=== PATIENT | male | born 1990 | race Caucasian/White ===

== ENCOUNTER 2023-03-13 09:51 | Emergency (ER) | payer SELFPAY ==
--- NOTE | 2023-03-13 10:01 | W.ED.ABDPA2 ---
HPI - Abdominal Pain General: Chief Complaint: Abdominal Pain Stated Complaint: abd pain Time Seen by Provider: 03/13/23 09:52 Source: patient Mode of arrival: ambulatory Limitations: no limitations History of Present Illness: Patient is a 32-year-old male who presents to ED today with a complaint of left-sided abdominal pain that he states first began approximately 2 weeks ago. He states pain started gradually. He states the day the pain began he had a fever of 102 but this has since subsided and not returned. He states every day he has felt incredibly nauseous and has had approximately one episode daily of what he describes as yellow bilious vomiting in the morning-reports making himself throw up in attempts to feel better. Patient states stools have been diarrhea over the past 2 weeks. Patient was evaluated at [facility] and sent to the emergency department for further evaluation. He denies any urinary frequency, hesitancy, urgency, hematuria. No flank pain. He denies heavy alcohol use or NSAID use. He is a habitual marijuana user but no other drug use. MD elicited complaint: abdominal pain Onset (ago): week(s) Pain Consistency: constant (with intermittent exacerbations) Location: LUQ and LLQ Severity: moderate Quality: sharp Radiation: none Migration to: no migration Exacerbating factors: nothing Relieving factors: eating (feels like eating maybe helps?) Associated Symptoms: Reports change in stool character, chills, diarrhea, fever(s) (day of abdominal pain onset-none since), nausea and vomiting; Denies dysuria, heartburn, hematuria, hematemesis and syncope Treatments prior to arrival: other (given IM Zofran at [facility] w/o improvement in nausea) Review of Systems Const: Reports: fever(s) (day of abdominal pain onset-none since) and chills; Denies: body aches, fatigue or malaise Eyes: Denies: change in vision or blurry vision Card: Denies: chest pain, palpitations, irregular heart rhythm, lightheadedness, syncope or dyspnea on exertion Resp: Denies: dyspnea, productive cough or pain on inspiration GI: Reports: abdominal pain, nausea, vomiting, diarrhea and change in stool character; Denies: hematemesis or heartburn : Denies: flank pain, difficulty urinating, dysuria, urinary frequency, urinary urgency, urinary hesitancy or hematuria Musc: Denies: neck pain, back pain, extremity pain, extremity swelling or joint pain Skin/Breast: Denies: rash Neuro: Denies: headache(s), numbness in extremities, weakness in extremities or sensory changes Physical Exam Const: COMMON NORMALS: average body habitus, patient oriented x3, no limitations, healthy appearing, alert and well nourished GENERAL APPEARANCE: cooperative and in distress (appears uncomfortable) ORIENTATION/CONSCIOUSNESS: Yes awake, Yes oriented to person, Yes oriented to place and Yes oriented to time HENMT: COMMON NORMALS: normocephalic and atraumatic HEAD & SCALP: normal to inspection, normocephalic and atraumatic Eye: COMMON NORMALS: no scleral icterus Resp: COMMON NORMALS: normal respiratory effort and clear to auscultation bilaterally AUSCULTATION: clear to auscultation bilaterally Cardio: COMMON NORMALS: regular rate and regular rhythm RATE: regular rate RHYTHM: regular rhythm GI: COMMON NORMALS: Normal to inspection, nondistended, normoactive bowel sounds present, Soft to palpation, No hepatosplenomegaly present and no masses INSPECTION: Yes normal to inspection AUSCULTATION: Yes Hypoactive bowel sounds present PALPATION: Yes Soft to palpation, Yes Tenderness to palpation present (GI) (throughout L abdomen although he states pain is not bad currently), No Guarding due to palpation present (GI), No Rigid due to palpation and Yes No hepatosplenomegaly present : COMMON NORMALS: Yes no CVA tenderness BLADDER/KIDNEY EXAM: Yes no CVA tenderness Back/Pelvis: COMMON NORMALS: no CVA tenderness, thoracic and lumbar spine normal to inspection, no thoracic nor lumbar tenderness and thoraco-lumbar ROM normal Extremity: COMMON NORMALS: normal to inspection GENERAL: Yes normal exam except as noted Neuro: BUCK COMA SCALE: document GCS findings Buck coma scale eye opening: Spontaneous Webster coma scale verbal response: Orientated Buck coma scale motor response: Obey commands Buck coma scale total score: 15 COMMON NORMALS: patient oriented x3 SENSORIUM/ORIENTATION: Yes alert, Yes oriented to person, Yes oriented to place and Yes oriented to time Skin: COMMON NORMALS: no rashes or lesions noted GENERAL SKIN EXAM: no rashes or lesions noted Course Vital Signs: Vital signs: Vital Signs Pulse Rate 50 L 03/13/23 10:26 Respiratory Rate 18 03/13/23 10:26 Blood Pressure 132/62 03/13/23 10:26 Pulse Oximetry 98 03/13/23 10:26 Oxygen Delivery Me thod Room Air 03/13/23 10:26 MDM - Abdominal Pain Medical Decision Making Patient's vital signs are normal. Blood work is nonactionable. UA showing 2+ blood. CT renal imaging obtained which shows mild colitis. Incidental findings in regards to liver lesions were discussed with patient. Patient was given GI cocktail here without much improvement. DDx includes gastritis, colitis, hyperemesis cannabinoid syndrome. Recommend follow up with PCP later this week. Return to ED precautions given. Lab Data 03/13/23 10:20 03/13/23 10:20 Labs/Radiology: Radiology Impressions Abdomen/Pelvis CT 03/13/23 11:06 IMPRESSION: 1. No renal calcifications or obstruction. No hydronephrosis. 2. Mild submucosal edema and wall thickening involving the ascending colon to the splenic flexure. Mild colitis suspected. There is no ascites or free fluid. 3. Normal appendix. 4. Bilateral L5 pars defects with grade 1 spondylolisthesis of L5. 5. Indeterminate but too small to characterize scattered hypoattenuation lesions in the liver. Follow-up ultrasound on a nonemergent basis may provide additional information. Differential includes cysts, hemangiomas and less likely metastatic disease. Laboratory Results WBC 10.4 10^3/uL (4.0-10.0) H 03/13/23 10:20 RBC 5.49 10^6/uL (4.1-5.3) H 03/13/23 10:20 Hgb 15.8 g/dL (11.7-16.6) 03/13/23 10:20 Hct 46.8 % (42.0-52.0) 03/13/23 10:20 MCV 85.2 fl (80-94) 03/13/23 10:20 MCH 28.8 pg (28.0-34.0) 03/13/23 10:20 MCHC 33.8 g/dL (30.0-36.0) 03/13/23 10:20 RDW 13.0 % (12.1-15.1) 03/13/23 10:20 Plt Count 294 10^3/cmm (130-400) 03/13/23 10:20 MPV 9.6 fL (7.4-10.4) 03/13/23 10:20 Neut % (Auto) 83.8 % 03/13/23 10:20 Lymph % (Auto) 9.9 % 03/13/23 10:20 [place] % (Auto) 4.6 % 03/13/23 10:20 Eos % (Auto) 1.0 % 03/13/23 10:20 Baso % (Auto) 0.4 % 03/13/23 10:20 Neut # (Auto) 8.75 10^3/uL (1.8-7.7) H 03/13/23 10:20 Lymph # (Auto) 1.0 10^3/uL (0.8-4.8) 03/13/23 10:20 [place] # (Auto) 0.5 10^3/uL (0.2-0.9) 03/13/23 10:20 Eos # (Auto) 0.1 10^3/uL (0.0-0.8) 03/13/23 10:20 Baso # (Auto) 0.0 10^3/uL (0.0-0.1) 03/13/23 10:20 Nucleated RBC % (auto) 0 % 03/13/23 10:20 Nucleated RBCs # 0.0 /100WBC 03/13/23 10:20 Sodium 138 mmol/L (136-145) 03/13/23 10:20 Potassium 4.8 mmol/L (3.5-5.1) 03/13/23 10:20 Chloride 103 mmol/L (98-107) 03/13/23 10:20 Carbon Dioxide 23 mmol/L (22-29) 03/13/23 10:20 Anion Gap 16.8 (5-19) 03/13/23 10:20 BUN 9 mg/dL (6-20) 03/13/23 10:20 Creatinine 0.7 mg/dL (0.7-1.2) 03/13/23 10:20 GFR Calculation 129.9 mL/min (90-130) 03/13/23 10:20 Glucose 128 mg/dL (65-115) H 03/13/23 10:20 Calculated Osmolality 286 mOsm/kg (285-295) 03/13/23 10:20 Calcium 8.8 mg/dL (8.5-10.5) 03/13/23 10:20 Total Bilirubin 0.3 mg/dL (0.15-1.2) 03/13/23 10:20 AST 27 U/L (0-40) 03/13/23 10:20 ALT 29 U/L (0-41) 03/13/23 10:20 Alkaline Phosphatase 99 U/L (40-130) 03/13/23 10:20 Total Protein 7.2 g/dL (6.6-8.7) 03/13/23 10:20 Albumin 4.2 g/dL (3.5-5.2) 03/13/23 10:20 Globulin 3.0 g/dL (1.3-4.6) 03/13/23 10:20 Lipase 10 U/L (13-60) L 03/13/23 10:20 Urine Color Yellow (Yellow) 03/13/23 10:30 Urine Appearance Clear (CLEAR) 03/13/23 10:30 Urine pH 5 (5-7) 03/13/23 10:30 Ur Specific [place] 1.030 (1.005-1.030) 03/13/23 10:30 Urine Protein Neg (Negative) 03/13/23 10:30 Urine Glucose (UA) Norm (Normal) 03/13/23 10:30 Urine Ketones 1+ (Negative) H 03/13/23 10:30 Urine Blood 2+ (Negative) H 03/13/23 10:30 Urine Nitrate Negative (Negative) 03/13/23 10:30 Urine Bilirubin Neg (Negative) 03/13/23 10:30 Urine Urobilinogen Norm mg/dL (Negative) 03/13/23 10:30 Ur Leukocyte Esterase Negative (Negative) 03/13/23 10:30 Urine RBC 0-4 /hpf (0-2) H 03/13/23 10:30 Urine WBC Rare /hpf (0-5) 03/13/23 10:30 Ur Squamous Epith Cells Rare /hpf (0-5) 03/13/23 10:30 Amorphous Sediment Not Reportable 03/13/23 10:30 Urine Bacteria 1+ /hpf (NONE) H 03/13/23 10:30 Urine Mucus 2+ /hpf 03/13/23 10:30 Discharge Plan Discharge Patient Disposition: Home Clinical Impression: Colitis Condition: Stable Prescriptions: New metronidazole 500 mg tablet 500 mg PO BID 7 Days Qty: 14 0RF Cipro 500 mg tablet 500 mg PO Q12H Qty: 14 0RF ondansetron 4 mg tablet,disintegrating 4 mg PO Q8H PRN (Reason: nausea and vomiting) Qty: 14 0RF Discharge Orders: Discharge ED (Routine); Ordered 03/13/23 Ordered By: Franchesca Tai Referrals: Martin Campbell MD [Primary Care Provider] - Activity Restrictions/Additional Instructions: As we discussed please follow-up with your primary care provider by the end of the week for reevaluation. We have went over incidental findings on your CT scan in regards to the lesions on your liver. Follow-up with ultrasound on a nonemergent basis was recommended. You are being placed on antibiotics for the colitis seen on CT imaging. As we discussed you did have some blood in your urine-unknown etiology at this time. Recommend follow-up with primary care for re-evaluation and possible repeat urine analysis. Coding Level of Care Code ED Post Acute Care Nurse for Rolando Blanca
[2023-03-13 10:02] VITALS: BMI 25.8
[2023-03-13] MEDS: sodium chloride 0.9% 1,000 ML 999 ML IV (10:21)
[2023-03-13] MEDS: metoclopramide 5 mg/mL SDV 2 mL 10 MG IVP (10:21)
[2023-03-13 10:26] VITALS: BP 132/62; PULSE 50; RESP 18; O2SAT 98
[2023-03-13 10:36] LABS: Basophils % 0.4 %; Eosinophils # 0.1 10^3/uL (0.0-0.8); Hematocrit 46.8 % (42.0-52.0); Hemoglobin 15.8 g/dL (11.7-16.6); Lymphocytes % 9.9 %; Mean Corpuscular HGB Conc 33.8 g/dL (30.0-36.0); Mean Corpuscular Hemoglobin 28.8 pg (28.0-34.0); Mean Corpuscular Volume 85.2 fl (80-94); Mean Platelet Volume 9.6 fL (7.4-10.4); Monocytes # 0.5 10^3/uL (0.2-0.9); Monocytes % 4.6 %; Neutrophils # 8.75 10^3/uL (1.8-7.7); Neutrophils % 83.8 %; Nucleated Red Blood Cells % 0 %; Platelet Count 294 10^3/cmm (130-400); Red Blood Count 5.49 10^6/uL (4.1-5.3); White Blood Count 10.4 10^3/uL (4.0-10.0)
[2023-03-13 10:55] LABS: Albumin Level 4.2 g/dL (3.5-5.2); Alkaline Phosphatase 99 U/L (40-130); Anion Gap 16.8 (5-19); Aspartate Amino Transferase 27 U/L (0-40); Blood Urea Nitrogen 9 mg/dL (6-20); Calcium 8.8 mg/dL (8.5-10.5); Carbon Dioxide 23 mmol/L (22-29); Chloride 103 mmol/L (98-107); Glomerular Filtration Rate 129.9 mL/min (90-130); Glucose 128 mg/dL (65-115); Lipase 10 U/L (13-60); Osmolality Calculated 286 mOsm/kg (285-295); Potassium 4.8 mmol/L (3.5-5.1); Sodium 138 mmol/L (136-145); Total Bilirubin 0.3 mg/dL (0.15-1.2); Total Protein 7.2 g/dL (6.6-8.7)
[2023-03-13 11:04] LABS: Add Urine Microscopic? YES; Bilirubin Urine Neg (Negative); Blood Urine 2+ (Negative); Glucose Urine UA Norm (Normal); Ketones Urine 1+ (Negative); Leukocyte Esterase Urine Negative (Negative); Nitrate Urine Negative (Negative); Protein Urine Neg (Negative); Urine Appearance Clear (CLEAR); Urine Color Yellow (Yellow); Urobilinogen Urine Norm (Negative); pH Urine 5 (5-7)
--- NOTE | 2023-03-13 11:06 | CT_ITS ---
WS: [id number] CT ABDOMEN AND PELVIS NONCONTRAST HISTORY: L sided abdominal pain TECHNIQUE: Imaging performed through the abdomen and pelvis. Coronal and sagittal reformats are submi tted. All CT scans at [facility] use at least one of these dose optimization techniques: auto mated exposure control; mA and/or kV adjustment per patient size (includes targeted exams where dose is matched to clinical indication); or iterative reconstruction. DLP: 561.59 mGy.cm COMPARISON: None available. Lower thorax: Lung bases are clear. Heart is top normal size. Liver: Liver is normal size. There are several scattered hypoechoic nodules within the liver. These a re too small to characterize completely. These may be small cysts or hemangiomas. Largest measuring 9 mm. No bile duct dilatation. Gallbladder: Normal gallbladder. No pericholecystic fluid or cholelithiasis. No gallbladder wall thic kening. Pancreas: Normal size and attenuation. Normal pancreatic duct. No pancreatitis or mass. Spleen: Normal. Adrenal glands: Normal. No mass. Right kidney: Normal size kidney with no mass or hydronephrosis. Left kidney: Normal size kidney with no mass or hydronephrosis. Aorta: Normal abdominal aorta, no aneurysm or atherosclerosis. No free fluid, intraperitoneal air or significant lymphadenopathy. GI tract: Stomach is nondistended. No small bowel obstruction. There is mild submucosal edema and wal l thickening involving the ascending and transverse colon. Wall thickening extends to the splenic fle xure. No obstructive pattern. Normal appendix. Abdominal wall: Small umbilical hernia contains fat only. Pelvis: Well-distended urinary bladder. No free fluid. No adenopathy. Osseous structures: Less than 2 mm anterolisthesis of L5. Bilateral L5 pars defects. CT/CT kidney stone [id number] IMPRESSION: 1. No renal calcifications or obstruction. No hydronephrosis. 2. Mild submucosal edema and wall thickening involving the ascending colon to the splenic flexure. Mild colitis suspected. There is no ascites or free fluid. 3. Normal appendix. 4. Bilateral L5 pars defects with grade 1 spondylolisthesis of L5. 5. Indeterminate but too small to characterize scattered hypoattenuation lesio ns in the liver. Follow-up ultrasound on a nonemergent basis may provide additi onal information. Differential includes cysts, hemangiomas and less likely meta static disease.
[2023-03-13 11:07] LABS: RBC Urine 0-4 /hpf (0-2); Squamous Epithelial Cell Urine RARE /hpf (0-5); WBC Urine RARE /hpf (0-5)
[2023-03-13 11:08] LABS: Bacteria Urine 1+ /hpf; Mucus Urine 2+ /hpf
[2023-03-13 11:18] LABS: Alanine Aminotransferase 29 U/L (0-41)
[2023-03-13] MEDS: ondansetron 2 mg/ML SDV 2 mL 4 MG IVP (12:10)
[2023-03-13] MEDS: morphine 4 mg/mL SDV 1 mL IVP (12:10)
[2023-03-13] MEDS: lidocaine 2% viscous 15 ML, aluminum-mag hydrox-simethicon 30 ML, sucralfate oral liq 1 GM PO (12:50)
== END 2023-03-13 13:22 | disposition home or self-care (01) ==
PROVIDERS: Emergency Provider Physician Assistant; PCP Family Medicine
DX: K52.9 Noninfective gastroenteritis and colitis, unspecified (principal)
CPT/HCPCS: 74176; 80053; 81001; 83690; 85025; 96361; 96374; 96375; 99285; J2270; J2405; J2765; J7030

== ENCOUNTER 2023-10-17 18:12 | Emergency (ER) | payer SELFPAY ==
--- NOTE | 2023-10-17 18:14 | XRR_ITS ---
PROCEDURE INFORMATION: Exam: XR Right Shoulder Exam date and time: 10/17/2023 6:42 PM Age: 33 years old Clinical indication: Injury or trauma; Other: Kicked by cow; Sprain or strain; Shoulder; Right TECHNIQUE: Imaging protocol: Radiologic exam of the right shoulder. Views: 2 or more views. COMPARISON: No relevant prior studies available. FINDINGS: Bones/joints: There is superior displacement of the clavicle in relation to the acromion. Mild swelling of the overlying soft tissues noted. No fracture identified. The glenohumeral joint is well-maintained. Soft tissues: See Bones/joints finding. XR/XR shoulder RT min 2V* [id number] IMPRESSION: Right acromioclavicular joint injury with superior displacement of the clavicle in relation to the acromion.
[2023-10-17 18:22] VITALS: BP 141/78; PULSE 74; RESP 18; TEMP 36.6; O2SAT 98; BMI 25.2
--- NOTE | 2023-10-17 18:31 | XRR_ITS ---
PROCEDURE INFORMATION: Exam: XR Right Scapula Exam date and time: 10/17/2023 6:47 PM Age: 33 years old Clinical indication: Injury or trauma; Other: Kicked by cow; Sprain or strain; Scapula; Right TECHNIQUE: Imaging protocol: Radiologic exam of the right scapula. Complete exam. COMPARISON: CR (CHEST, ) 10/17/2023 6:42 PM FINDINGS: Bones/joints: No fracture. Right acromioclavicular joint injury identified on previous images is not clearly seen in the current examination. Mild swelling of the soft tissues of the right AC joint region noted. Soft tissues: See Bones/joints finding. XR/[place] [id number] IMPRESSION: 1. Previously identified right AC joint injury is not clearly seen in the current examination. 2. No fracture identified. Right glenohumeral joint is well-maintained.
--- NOTE | 2023-10-17 18:33 | W.ED.EXTPRO ---
HPI - Extremity Problem General: Chief complaint: Extremity Injury, Upper Stated complaint: right shoulder injury Time Seen by Provider: 10/17/23 18:14 Source: patient Mode of arrival: ambulatory Limitations: no limitations History of Present Illness: 33-year-old male states that he got kicked in his right shoulder and scapula by a cow. He has pain over the shoulder he rates a 5 out of 10 it is worse with palpation and movement he denies any other injuries denies any neck pain Associated symptoms: Deny chest pain, fever(s) or rash Review of Systems Const: Denies: fever(s), chills, body aches or change in appetite Eyes: Denies: blurry vision or eye discomfort ENMT: Denies: throat pain or dental pain Card: Denies: chest pain Resp: Denies: dyspnea GI: Denies: abdominal pain, nausea, vomiting or diarrhea Musc: Reports: extremity pain; Denies: neck pain or back pain Skin/Breast: Denies: rash Neuro: Denies: headache(s) Physical Exam Const: COMMON NORMALS: no acute distress, patient oriented x3 and healthy appearing HENMT: COMMON NORMALS: normocephalic and atraumatic HEAD & SCALP: normocephalic and atraumatic Neck/C-Spine: COMMON NORMALS: full ROM and supple Chest: COMMONS NORMALS: normal inspection of the chest Resp: COMMON NORMALS: normal respiratory effort Cardio: COMMON NORMALS: regular rate, regular rhythm and No murmurs present (Cardio) RATE: regular rate RHYTHM: regular rhythm Extremity: COMMON NORMALS: normal to inspection and full ROM NARRATIVE EXTREMITY EXAM: Tenderness over right shoulder and scapula no signs of dislocation Neuro: COMMON NORMALS: patient oriented x3, moves all extremities and no focal motor deficits Psych: COMMON NORMALS: mental status grossly normal, Normal thought process present and cooperative THOUGHT PROCESS: Normal thought process present Skin: COMMON NORMALS: no rashes or lesions noted and no wounds GENERAL SKIN EXAM: no rashes or lesions noted Course Vital Signs: Vital signs: Vital Signs Temperature 97.8 F 10/17/23 18:22 Pulse Rate 64 10/17/23 18:34 Respiratory Rate 18 10/17/23 18:34 Blood Pressure 148/97 10/17/23 18:34 Pulse Oximetry 97 10/17/23 18:34 Oxygen Delivery Me thod Room Air 10/17/23 18:34 MDM - Extremity (Nontraumatic) Medical Decision Making Patient presents here with AC separation to his right shoulder he has no signs of fracture or dislocation he is to follow-up with orthopedics we will prescribe pain meds he is to return if worsening. Medical Records I reviewed the patient's medical records. XR interpretation done by ED provider, pending radiology final review ED provider radiology interpretation(s): X-ray right shoulder AC separation Discharge Plan Discharge Patient Disposition: Home Clinical Impression: AC separation Qualifiers: Encounter type: initial encounter Laterality: right Qualified Code(s): S43.101A - Unspecified dislocation of right acromioclavicular joint, initial encounter Condition: Stable Prescriptions: New hydrocodone-acetaminophen 5-325 mg tablet 1 tab PO Q6H PRN (Reason: pain) Qty: 14 0RF Naprosyn 500 mg tablet 500 mg PO BID PRN (Reason: pain) Qty: 20 0RF No Action Cipro 500 mg tablet 500 mg PO Q12H Qty: 14 0RF ondansetron 4 mg tablet,disintegrating 4 mg PO Q8H PRN (Reason: nausea and vomiting) Qty: 14 0RF Discharge Orders: Discharge ED (Routine); Ordered 10/17/23 Ordered By: Radha Kohler Referrals: Mari Springer MD [Physician] - 1-3 days Martin Campbell MD [Primary Care Provider] - Discharge Diet: Advance as tolerated Discharge Activity: Resume usual activity Patient Instructions: Acromioclavicular Separation (ED), Opioid Safety Coding Level of Care Code ED Director Utilization Management for Rolando Blanac
[2023-10-17 18:34] VITALS: BP 148/97; PULSE 64; RESP 18; O2SAT 97
[2023-10-17] MEDS: HYDROcodone-acetaminophen 5-325 mg Tablet 1 TAB PO (18:39)
--- NOTE | 2023-10-17 18:55 | PC.NURSE ---
Report taken from Desire Alcala RN.
[2023-10-17 19:40] VITALS: BP 137/81
== END 2023-10-17 19:42 | disposition home or self-care (01) ==
PROVIDERS: Emergency Provider Emergency Medicine; PCP Family Medicine
DX: S43.101A Unspecified dislocation of right acromioclavicular joint, initial encounter (principal); W55.22XA Struck by cow, initial encounter
CPT/HCPCS: 73010; 73030; 99283

== ENCOUNTER 2023-10-18 00:54 | Emergency (ER) | payer SELFPAY ==
[2023-10-18 01:04] VITALS: BP 172/75; PULSE 72; RESP 17; TEMP 36.8; O2SAT 97; BMI 22.3
--- NOTE | 2023-10-18 01:29 | W.ED.SYNCOPE ---
HPI - Syncope General: Chief Complaint: Syncope Stated Complaint: fell, face, shoulder pain Time Seen by Provider: 10/18/23 00:59 History of Present Illness: Patient presents to the ER after passing out falling and hitting his face on the bathtub. Patient was seen earlier today for bilateral shoulder pain. Patient was sent home with pain medicine. Patient took the pain medicine thinks he got overheated passed out and fell and landed face first into his bathtub. Patient fractured 2 front teeth has a laceration on his lip and his left eyebrow. Review of Systems General: Reports: 10 or more systems reviewed and unremarkable except in HPI and below Physical Exam Const: COMMON NORMALS: no acute distress, average body habitus, patient oriented x3, no limitations, healthy appearing, alert and well nourished HENMT: COMMON NORMALS: normocephalic, hearing grossly normal bilaterally, external ears normal, Normal external nose present, moist oral mucous membranes and oropharynx normal; head/scalp not atraumatic (Small laceration above left eyebrow, laceration through upper lip medially.) and dentition not normal (2 front upper teeth fractured gums intact) HEAD & SCALP: normocephalic; not atraumatic (Small laceration above left eyebrow, laceration through upper lip medially.) NOSE: Normal external nose present EXTERNAL EAR: Yes external ears normal Eye: COMMON NORMALS: Equal, round and reactive pupils present, EOMs intact bilaterally, conjunctivae normal and no scleral icterus CONJUNCTIVA: Yes conjunctivae normal PUPIL: Yes Equal, round and reactive pupils present Neck/C-Spine: COMMON NORMALS: full ROM, no lymphadenopathy, supple, no meningeal signs, no JVD and Thyroid normal THYROID: Thyroid normal Chest: COMMONS NORMALS: normal inspection of the chest and normal palpation of entire chest wall Resp: COMMON NORMALS: normal respiratory effort, No retractions, No use of accessory muscles and clear to auscultation bilaterally AUSCULTATION: clear to auscultation bilaterally Cardio: COMMON NORMALS: no JVD, regular rate, regular rhythm, S1 normal heart sound present, S2 normal heart sound present, No gallops present (Cardio), No clicks present (Cardio), No murmurs present (Cardio) and No rub (Cardio) RATE: regular rate RHYTHM: regular rhythm HEART SOUNDS: S1 normal heart sound present and S2 normal heart sound present Neuro: COMMON NORMALS: patient oriented x3 SENSORIUM/ORIENTATION: Yes alert MENINGEAL SIGNS: Yes no meningeal signs Skin: NARRATIVE SKIN EXAM: Abrasion and punctate laceration to the left eyebrow region. Abrasion swelling and through and through laceration through medial upper lip. Procedures Laceration Laceration 1: Site: face and lip Side (If applicable): left (Eyebrow) Size (cm): 0.5 Description: linear and involves jameson border Depth: simple, single layer Skin layer closed with: other (Dermabond) Course Vital Signs: Vital signs: Vital Signs Temperature 98.3 F 10/18/23 01:04 Pulse Rate 72 10/18/23 01:04 Respiratory Rate 17 10/18/23 01:04 Blood Pressure 172/75 10/18/23 01:04 Pulse Oximetry 97 10/18/23 01:04 Oxygen Delivery Me thod Room Air 10/18/23 01:04 MDM - Syncope Medical Decision Making Patient has syncopal episode fell and fractured his 2 front teeth has a laceration on his upper lip and left eyebrow that was both closed with Dermabond. Patient be discharged home and is to continue his hydrocodone for as for pain as needed. Patient should follow-up with his dentist for definitive treatment. Differential Diagnosis Unlikely syncope due to orthostatic hypotension, vasovagal syncope, complete atrioventricular block, subarachnoid hemorrhage, pulmonary embolism or dehydration Medical Records I reviewed the patient's medical records. Lab Data I reviewed the patient's lab results. All radiology interpretation(s) finalized by discharge Discharge Plan Discharge Patient Disposition: Home Clinical Impression: Syncope, Face lacerations, Fracture of tooth Condition: Stable Prescriptions: No Action Cipro 500 mg tablet 500 mg PO Q12H Qty: 14 0RF ondansetron 4 mg tablet,disintegrating 4 mg PO Q8H PRN (Reason: nausea and vomiting) Qty: 14 0RF hydrocodone-acetaminophen 5-325 mg tablet 1 tab PO Q6H PRN (Reason: pain) Qty: 14 0RF Naprosyn 500 mg tablet 500 mg PO BID PRN (Reason: pain) Qty: 20 0RF Discharge Orders: Discharge ED (Routine); Ordered 10/18/23 Ordered By: Sean Rodgers Patient Instructions: Opioid Safety, Pain Management, Skin Adhesive Care (ED), Facial Laceration (ED), Syncope (ED) Activity Restrictions/Additional Instructions: Keep wounds clean and dry do not pick at the Dermabond. Please swish and rinse your mouth out after you eat or drink any food. Please follow-up with your dentist for definitive treatment for your fractured teeth. Please follow-up with your family practice physician for further evaluation and treatment of your lacerations. Coding Level of Care Code ED Senior Caregiver for Rolando Blanca
[2023-10-18 01:51] VITALS: BP 189/90; PULSE 67; O2SAT 96
--- NOTE | 2023-10-18 07:39 | DCPLANNER ---
Message was sent to ortho on 10/18/23 at 0739. [facility] to contact patient for referral appt.
== END 2023-10-18 01:54 | disposition home or self-care (01) ==
PROVIDERS: Emergency Provider Emergency Medicine
DX: S01.112A Laceration without foreign body of left eyelid and periocular area, initial encounter (principal); S01.511A Laceration without foreign body of lip, initial encounter; R55 Syncope and collapse; S02.5XXA Fracture of tooth (traumatic), initial encounter for closed fracture; W18.2XXA Fall in (into) shower or empty bathtub, initial encounter
CPT/HCPCS: 12011; 99282

== ENCOUNTER → 2023-10-31 08:12 | Outpatient (BNVA) | payer OTHER, SELFPAY | PROVIDERS: Visit Provider Nurse Practitioner | DX: S43.101A Unspecified dislocation of right acromioclavicular joint, initial encounter; W55.22XA Struck by cow, initial encounter; Y99.0 Civilian activity done for income or pay | CPT/HCPCS: 73030 ==

== ENCOUNTER 2025-07-02 09:18 | Emergency (ER) | payer SELFPAY ==
[2025-07-02 09:27] VITALS: BP 150/102; PULSE 90; RESP 16; TEMP 36.7; O2SAT 95; BMI 25.1
--- NOTE | 2025-07-02 09:30 | W.ED.ABDPA2 ---
HPI - Abdominal Pain General: Chief Complaint: Abdominal Pain Stated Complaint: stomach pain, n/v/d Time Seen by Provider: 07/02/25 09:29 Source: patient Mode of arrival: ambulatory Limitations: no limitations History of Present Illness: Patient is a 35-year-old male who presents to ED today with a complaint of abdominal pain. Patient states he has been having issues with his stomach for well over a year now. He states he will intermittently have upper abdominal pain. He notices it most in the mornings and states he feels hungry but states when he eats, his pain worsens. He does feel like pain worsens with cigarette smoking. He states pain seems to be worse with certain foods including dairy and spicy foods. He has not tried any [id number] medications to help with discomfort. He has also reporting intermittent episodes of nausea and vomiting when the pain gets bad. He states he has not had a bowel movement in approximately 2 to 3 days. He is passing flatulence. He has not noticed any yellowing to his skin or eyes. Of note, patient had a CT scan performed back in 2022 with nonspecific hepatic lesions. He states these were biopsied but he never followed up regarding these results. Patient is not been running fevers. At time of his arrival to the emergency department, he is not complaining of abdominal pain. He does use marijuana habitually and states that when his abdominal pain hurts, he often times will sit in a hot bathtub. MD elicited complaint: abdominal pain Pertinent past history: none Onset (ago): month(s) Pain Consistency: intermittent Location: Diffuse Severity: moderate Quality: cramping Radiation: none Migration to: no migration Exacerbating factors: eating and other (smoking) Relieving factors: nothing Associated Symptoms: Reports constipation, nausea and vomiting; Denies chills, dysuria, fever(s), hematochezia, hematemesis and melena Related Data Previous Rx's ?Medication ?Instructions ?Recorded naproxen 500 mg tablet (Naprosyn) 500 mg PO BID PRN pain #20 tabs 10/17/23 diclofenac sodium 1 % topical gel 4 g topical QID #100 grams 12/06/23 pantoprazole 40 mg tablet,delayed 40 mg PO DAILY 4 weeks #28 tabs 07/02/25 release (Protonix) sucralfate 1 gram tablet (Carafate) 1 g PO TID 2 weeks #42 tabs 07/02/25 Allergies Allergy/AdvReac Type Severity Reaction Status Date / Time No Known Allergies Allergy Verified 01/03/24 14:06 Review of Systems Const: Reports: night sweats; Denies: fever(s), chills, body aches, fatigue or malaise Card: Denies: chest pain Resp: Denies: dyspnea GI: Reports: abdominal pain, nausea, vomiting and constipation; Denies: hematemesis, hematochezia or melena : Denies: flank pain, difficulty urinating, dysuria, urinary frequency, urinary urgency or urinary hesitancy Musc: Denies: neck pain, back pain, extremity pain, extremity swelling, joint pain, joint swelling or joint redness Skin/Breast: Denies: rash Neuro: Denies: headache(s), numbness in extremities, weakness in extremities, sensory changes or dizziness [facility] ED PFSH: Medical History Work related injury Acromioclavicular joint separation, type 3 Physical Exam Const: COMMON NORMALS: no acute distress, average body habitus, patient oriented x3, no limitations, healthy appearing, alert and well nourished GENERAL APPEARANCE: cooperative ORIENTATION/CONSCIOUSNESS: Yes awake, Yes oriented to person, Yes oriented to place and Yes oriented to time HENMT: COMMON NORMALS: normocephalic and atraumatic HEAD & SCALP: normocephalic and atraumatic Eye: COMMON NORMALS: no scleral icterus Neck/C-Spine: COMMON NORMALS: full ROM, no lymphadenopathy, supple and no meningeal signs Chest: COMMONS NORMALS: normal inspection of the chest Resp: COMMON NORMALS: normal respiratory effort and clear to auscultation bilaterally AUSCULTATION: clear to auscultation bilaterally Cardio: COMMON NORMALS: regular rate and regular rhythm RATE: regular rate RHYTHM: regular rhythm GI: COMMON NORMALS: Normal to inspection, nondistended, normoactive bowel sounds present, Soft to palpation, non-tender, No hepatosplenomegaly present and no masses PALPATION: Yes Soft to palpation and Yes No hepatosplenomegaly present : COMMON NORMALS: Yes no CVA tenderness BLADDER/KIDNEY EXAM: Yes no CVA tenderness Back/Pelvis: COMMON NORMALS: no CVA tenderness and thoracic and lumbar spine normal to inspection Extremity: COMMON NORMALS: normal to inspection Neuro: COMMON NORMALS: patient oriented x3 SENSORIUM/ORIENTATION: Yes alert, Yes oriented to person, Yes oriented to place and Yes oriented to time MENINGEAL SIGNS: Yes no meningeal signs Skin: COMMON NORMALS: no rashes or lesions noted GENERAL SKIN EXAM: no rashes or lesions noted Course Vital Signs: Vital signs: Vital Signs Temperature 98.0 F 07/02/25 09:27 Pulse Rate 90 07/02/25 09:27 Respiratory Rate 16 07/02/25 09:27 Blood Pressure 150/102 07/02/25 09:27 Pulse Oximetry 95 07/02/25 09:27 Oxygen Delivery Me thod Room Air 07/02/25 09:27 MDM - Abdominal Pain Medical Decision Making Patient on arrival is not having abdominal pain. His abdominal exam is nonsurgical. Vital signs are stable. Blood work showing normal white count. LFTs are unremarkable. Normal lipase. UA is clear. At this time I do not feel he needs to undergo emergent CT imaging. Differential at this time broad including GERD, esophagitis, gastritis, peptic ulcer disease, marijuana abdominal pain, malignancy given his unknown biopsy results regarding liver lesions, IBS, lactose intolerance, inflammatory/infectious colitis, among several others. We will try to get him set up with a primary care provider for further evaluation as well as general surgery to evaluate for possible need for endoscopy. Will place him on Carafate/PPI. Dietary modifications discussed. Return to ED precautions given. Differential Diagnosis Likely abdominal pain, constipation, gastroenteritis, pancreatitis and small bowel obstruction Medical Records I reviewed the patient's medical records. Lab Data I reviewed the patient's lab results. 07/02/25 09:47 07/02/25 09:47 Labs/Radiology: Laboratory Results WBC 10.54 10^3/uL (3.29-11.43) 07/02/25 09:47 RBC 5.96 10^6/uL (3.85-5.65) H 07/02/25 09:47 Hgb 17.30 g/dL (11.27-16.99) H 07/02/25 09:47 Hct 50.8 % (37-53) 07/02/25 09:47 MCV 85.2 fl (82-101) 07/02/25 09:47 MCH 29.0 pg (27-33) 07/02/25 09:47 MCHC 34.1 g/dL (30-55) 07/02/25 09:47 RDW 12.7 % (12.1-15.1) 07/02/25 09:47 Plt Count 303 10^3/cmm (157-399) 07/02/25 09:47 MPV 9.6 fL (7.4-10.4) 07/02/25 09:47 Neut % (Auto) 72.3 % 07/02/25 09:47 Lymph % (Auto) 19.4 % 07/02/25 09:47 [place] % (Auto) 7.0 % 07/02/25 09:47 Eos % (Auto) 0.6 % 07/02/25 09:47 Baso % (Auto) 0.5 % 07/02/25 09:47 Neut # (Auto) 7.63 10^3/uL (1.8-7.7) 07/02/25 09:47 Lymph # (Auto) 2.0 10^3/uL (0.8-4.8) 07/02/25 09:47 [place] # (Auto) 0.7 10^3/uL (0.2-0.9) 07/02/25 09:47 Eos # (Auto) 0.1 10^3/uL (0.0-0.8) 07/02/25 09:47 Baso # (Auto) 0.1 10^3/uL (0.0-0.1) 07/02/25 09:47 Nucleated RBC % (auto) 0 % 07/02/25 09:47 Nucleated RBCs # 0.0 /100WBC 07/02/25 09:47 Sodium 137 mmol/L (136-145) 07/02/25 09:47 Potassium 4.1 mmol/L (3.5-5.1) 07/02/25 09:47 Chloride 102 mmol/L (98-107) 07/02/25 09:47 Carbon Dioxide 21 mmol/L (22-29) L 07/02/25 09:47 Anion Gap 18.1 (5-19) 07/02/25 09:47 BUN 20 mg/dL (6-20) 07/02/25 09:47 Creatinine 1.0 mg/dL (0.7-1.2) 07/02/25 09:47 GFR Calculation 84.5 mL/min (90-130) L 07/02/25 09:47 Glucose 98 mg/dL (65-115) 07/02/25 09:47 Calculated Osmolality 287 mOsm/kg (285-295) 07/02/25 09:47 Calcium 9.5 mg/dL (8.5-10.5) 07/02/25 09:47 Total Bilirubin 0.5 mg/dL (0.15-1.2) 07/02/25 09:47 AST 5 U/L (0-40) 07/02/25 09:47 ALT 26 U/L (0-41) 07/02/25 09:47 Alkaline Phosphatase 96 U/L (40-130) 07/02/25 09:47 Total Protein 8.0 g/dL (6.6-8.7) 07/02/25 09:47 Albumin 4.3 g/dL (3.5-5.2) 07/02/25 09:47 Globulin 3.7 g/dL (1.3-4.6) 07/02/25 09:47 Lipase 10 U/L (13-60) L 07/02/25 09:47 Urine Color Yellow (Yellow) 07/02/25 09:39 Urine Appearance Clear (CLEAR) 07/02/25 09:39 Urine pH 5.5 (5-7) 07/02/25 09:39 Ur Specific [place] 1.030 (1.005-1.030) 07/02/25 09:39 Urine Protein Trace (Negative) A 07/02/25 09:39 Urine Glucose (UA) Negative (Normal) 07/02/25 09:39 Urine Ketones Trace (Negative) 07/02/25 09:39 Urine Blood Negative (Negative) 07/02/25 09:39 Urine Nitrate Negative (Negative) 07/02/25 09:39 Urine Bilirubin Negative (Negative) 07/02/25 09:39 Urine Urobilinogen 1.0 mg/dL (Negative) 07/02/25 09:39 Ur Leukocyte Esterase Negative (Negative) 07/02/25 09:39 Urine RBC 0-2 /hpf (0-2) 07/02/25 09:39 Urine WBC 0-5 /hpf (0-5) 07/02/25 09:39 Ur Squamous Epith Cells 0-5 /hpf (0-5) 07/02/25 09:39 Amorphous Sediment Not Reportable 07/02/25 09:39 Urine Bacteria None seen /hpf (NONE) 07/02/25 09:39 Hyaline Casts 5.77 /lpf 07/02/25 09:39 No radiology studies performed this visit Discharge Plan Discharge Patient Disposition: Home Clinical Impression: Abdominal pain Qualifiers: Abdominal location: epigastric Qualified Code(s): R10.13 - Epigastric pain Condition: Stable Prescriptions: New sucralfate [Carafate] 1 gram tablet 1 g PO TID 14 Days Qty: 42 0RF pantoprazole [Protonix] 40 mg tablet,delayed release (DR/EC) 40 mg PO DAILY 28 Days Qty: 28 0RF No Action diclofenac sodium 1 % gel 4 g topical QID Qty: 100 1RF Rx Instructions: apply to single knee, ankle, foot; for foot includes sole/toes/top of foot Naprosyn 500 mg tablet 500 mg PO BID PRN (Reason: pain) Qty: 20 0RF Discharge Orders: Discharge ED (Routine); Ordered 07/02/25 Ordered By: Franchesca Tai Patient Instructions: Abdominal Pain (ED), Patient Portal & Alejandro Instructions Activity Restrictions/Additional Instructions: As we discussed, we will have case management set you up with a primary care doctor as well as an appointment for general surgery for evaluation for possible endoscopy. Please fill your medications and start these immediately. Avoid dairy, spicy, acidic, greasy foods. Try to cut down on smoking. You may return to the emergency department at anytime for worsening or severe abdominal pain or any other concerns you may have. Print Language: German Coding Level of Care Code ED Electronic Warfare Operator for Rolando Blanca
[2025-07-02 09:55] LABS: Hematocrit 50.8 % (37-53); Hemoglobin 17.30 g/dL (11.27-16.99); Mean Corpuscular HGB Conc 34.1 g/dL (30-55); Mean Corpuscular Hemoglobin 29.0 pg (27-33); Mean Corpuscular Volume 85.2 fl (82-101); Nucleated Red Blood Cells % 0 %; Platelet Count 303 10^3/cmm (157-399); Red Blood Count 5.96 10^6/uL (3.85-5.65); White Blood Count 10.54 10^3/uL (3.29-11.43)
[2025-07-02 10:06] LABS: Glucose Urine UA Negative (Normal); Nitrate Urine Negative (Negative); Specific Gravity, Urine 1.030 (1.005-1.030)
[2025-07-02 10:09] LABS: Alanine Aminotransferase 26 U/L (0-41); Albumin Level 4.3 g/dL (3.5-5.2); Alkaline Phosphatase 96 U/L (40-130); Anion Gap 18.1 (5-19); Blood Urea Nitrogen 20 mg/dL (6-20); Calcium 9.5 mg/dL (8.5-10.5); Carbon Dioxide 21 mmol/L (22-29); Chloride 102 mmol/L (98-107); Creatinine Clr Calc Pharmacy 112.4338; Globulin 3.7 g/dL (1.3-4.6); Glucose 98 mg/dL (65-115); Lipase 10 U/L (13-60); Osmolality Calculated 287 mOsm/kg (285-295); Potassium 4.1 mmol/L (3.5-5.1); Sodium 137 mmol/L (136-145); Total Protein 8.0 g/dL (6.6-8.7)
[2025-07-02 10:11] LABS: Add Urine Microscopic? YES
[2025-07-02 10:18] LABS: Aspartate Amino Transferase 5 U/L (0-40)
--- NOTE | 2025-07-02 10:44 | DCPLANNER ---
messaged gen surg and wpfm for er f/u
== END 2025-07-02 10:50 | disposition home or self-care (01) ==
PROVIDERS: Emergency Provider Physician Assistant
DX: R10.13 Epigastric pain (principal)
CPT/HCPCS: 36415; 80053; 81001; 83690; 85025; 99283

== ENCOUNTER 2025-07-05 08:41 | Emergency (ER) | payer SELFPAY ==
[2025-07-05 08:46] VITALS: BP 181/122; PULSE 108; RESP 18; TEMP 36.8; O2SAT 94; BMI 25.1
--- NOTE | 2025-07-05 08:48 | CTR_ITS ---
PROCEDURE INFORMATION: Exam: CT Abdomen And Pelvis With Contrast Exam date and time: 07/05/2025 09:08 AM Age: 35 years old Clinical indication: Abdominal pain; Localized; Upper; Additional info: Abd pain TECHNIQUE: Imaging protocol: Computed tomography of the abdomen and pelvis with contrast. Radiation optimization: All CT scans at this facility use at least one of these dose optimization techniques: automated exposure control; mA and/or kV adjustment per patient size (includes targeted exams where dose is matched to clinical indication); or iterative reconstruction. Contrast material: OMNIPAQUE 350; Contrast volume: 100 ml; Contrast route: INTRAVENOUS (IV); COMPARISON: CT kidney stone [id number] 03/13/2023 11:33 AM RADIATION DOSE METRICS: Total DLP (mGy-cm): 458.03 FINDINGS: Liver: Multiple subcentimeter scattered hypoechoic lesions throughout the liver too small to characterize. The largest measures 11 mm in the left hepatic lobe. These are similar to the prior CT. Gallbladder and biliary ducts: Normal. No calcified stones. No ductal dilation. Pancreas: Normal. No ductal dilation. Spleen: Normal. No splenomegaly. Adrenal glands: Normal. No mass. Kidneys and ureters: No renal calculi. No abnormal calcifications along the expected course of the ureters. No hydronephrosis. Stomach and bowel: Unremarkable. No obstruction. No mucosal thickening. Appendix: Normal retrocecal appendix. Intraperitoneal space: Unremarkable. No free air. No significant fluid collection. Vasculature: Unremarkable. No abdominal aortic aneurysm. Lymph nodes: Unremarkable. No enlarged lymph nodes. Urinary bladder: No bladder calculi. Reproductive: Unremarkable as visualized. Bones/joints: Bilateral L5 pars defects with subtle grade 1 anterolisthesis. Soft tissues: Unremarkable. CT/CT abdomen pelvis w con* [id number] IMPRESSION: 1. Multiple low-attenuation hepatic lesions, similar to the prior CT. Differential considerations include hepatic cysts, hemangiomas and less likely metastatic disease. 2. Bilateral L5 pars defects subtle grade 1 anterolisthesis.
--- NOTE | 2025-07-05 08:50 | ED_ITS ---
HPI - Abdominal Pain 2 General: Chief Complaint: Abdominal Pain Stated Complaint: stomach pain, n/v, intermittent fever Time Seen by Provider: 07/05/25 08:43 Source: patient Mode of arrival: ambulatory Limitations: no limitations History of Present Illness: 35-year-old male states he been having e pigastric abdominal pain over the last week. He states that he is seen here started on sulcal fate along with Protonix but has not really been able to tolerate it due to vomiting. Has continued epigastric pain is sharp in nature rates an 8 out of 10 he has had vomiting he denies any fevers denies any diarrheas. Associated Symptoms: Reports nausea and vomiting; Denies chills, diarrhea, dysuria and fever(s) Related Data Previous Rx's ?Medication ?Instructions ?Recorded naproxen 500 mg tablet (Naprosyn) 500 mg PO BID PRN pa in #20 tabs 10/17/23 diclofenac sodium 1 % topical gel 4 g topical QID #100 grams 12/06/23 pantoprazole 40 mg tablet,delayed 40 mg PO DAILY 4 wee nh #28 tabs 07/02/25 release (Protonix) sucralfate 1 gram tablet (Carafate) 1 g PO TID 2 weeks #42 tabs 07/02/25 hydrocodone 5 mg-acetaminophen 325 1 tab PO Q6H PRN pa in #14 tabs 07/05/25 mg tablet ondansetron 4 mg disintegrating 4 mg PO Q6H PRN nausea and 07/05/25 tablet vomiting #14 tabs Allergies Allergy/AdvReac Type Severity Reaction Status Date / Time No Known Allergies Allergy Verified 01/03/24 14:06 Review of Systems 2 Const: Denies: fever(s), chills, body aches or change in appetite ENMT: Denies: throat pain or dental pain Card: Denies: chest pain Resp: Denies: dyspnea GI: Reports: abdominal pain, nausea and vomiting; Denies: diarrhea : Denies: dysuria Musc: Denies: neck pain or back pain Skin/Breast: Denies: rash Neuro: Denies: headache(s) PFSH ED 2 PFSH: Medical History Work related injury Acromioclavicular joint separation, type 3 Physical Exam 2 Const: COMMON NORMALS: no acute distress, patient oriented x3 and healthy appearing HENMT: COMMON NORMALS: normocephalic and atraumatic HEAD & SCALP: n ormocephalic and atraumatic Eye: COMMON NORMALS: conjunctivae normal CONJUNCTIVA: Yes conjunctivae normal Neck/C-Spine: COMMON NORMALS: full ROM and supple Chest: COMMONS NORMALS: normal inspection of the chest Resp: COMMON NORMALS: normal respiratory effort, No retractions, No use of accessory muscles and clear to auscultation bilaterally AUSCULTATION: clear to auscultation bilaterally Cardio: COMMON NORMALS: regular rate, regular rhythm and No murmurs present (Cardio) RATE: regular rate RHYTHM: regular rhythm GI: COMMON NORMALS: Normal to inspection, nondistended, normoactive bowel sounds present, Soft to palpation and no masses PALPATION: Yes Soft to palpation OTHER: epigastric tenderness Extremity: COMMON NORMALS: normal to inspection and full ROM Neuro: COMMON NORMALS: patient oriented x3, moves all extremities and no focal motor deficits Psych: COMMON NORMALS: mental status grossly normal, Normal thought process present and cooperative THOUGHT PROCESS: Normal thought process present Skin: COMMON NORMALS: no rashes or lesions noted and no wounds GENERAL SKIN EXAM: no rashes or lesions noted Course 2 Vital Signs: Vital signs: Vital Signs Temperature 98.3 F 07/05/25 08:46 Pulse Rate 108 H 07/05/25 08:46 Respiratory Rate 17 07/05/25 09:08 Blood Pressure 181/122 07/05/25 08:46 Pulse Oximetry 98 07/05/25 09:08 MDM - Abdominal Pain Medical Decision Making Patient presents with abdominal pain is likely gastritis CT showed no acute findings blood work here is normal he is no signs of acute surgical abdomen no signs appendicitis or cholecystitis. Will get him follow-up with surgery will prescribe him pain meds he is to continue his Protonix and sulcal fate return if worsening Medical Records I reviewed the patient's medical records. Lab Data I reviewed the patient's lab results. 07/05/25 09:03 07/05/25 09:45 Labs/Radiology: Radiology Impressions Abdomen/Pelvis CT 07/05/25 08:48 IMPRESSION: 1. Multiple low-attenuation hepatic lesions, similar to the prior CT. Differential considerations include hepatic cysts, hemangiomas and less likely metastatic disease. 2. Bilateral L5 pars defects subtle grade 1 anterolisthesis. Laboratory Results WBC 10.91 10^3/uL (3.29-11.43) 07/05/25 09:03 RBC 6.60 10^6/uL (3.85-5.65) H 07/05/25 09:03 Hgb 19.40 g/dL (11.27-16.99) H 07/05/25 09:03 Hct 53.9 % (37-53) H 07/05/25 09:03 MCV 81.7 fl (82-101) L 07/05/25 09:03 MCH 29.4 pg (27-33) 07/05/25 09:03 MCHC 36.0 g/dL (30-55) 07/05/25 09:03 RDW 12.9 % (12.1-15.1) 07/05/25 09:03 Plt Count 386 10^3/cmm (157-399) 07/05/25 09:03 MPV 10.2 fL (7.4-10.4) 07/05/25 09:03 Neut % (Auto) 75.8 % 07/05/25 09:03 Lymph % (Auto) 16.2 % 07/05/25 09:03 [place] % (Auto) 7.0 % 07/05/25 09:03 Eos % (Auto) 0.2 % 07/05/25 09:03 Baso % (Auto) 0.5 % 07/05/25 09:03 Neut # (Auto) 8.28 10^3/uL (1.8-7.7) H 07/05/25 09:03 Lymph # (Auto) 1.8 10^3/uL (0.8-4.8) 07/05/25 09:03 [place] # (Auto) 0.8 10^3/uL (0.2-0.9) 07/05/25 09:03 Eos # (Auto) 0.0 10^3/uL (0.0-0.8) 07/05/25 09:03 Baso # (Auto) 0.1 10^3/uL (0.0-0.1) 07/05/25 09:03 Nucleated RBC % (auto) 0 % 07/05/25 09:03 Nucleated RBCs # 0.0 /100WBC 07/05/25 09:03 Sodium 131 mmol/L (136-145) L 07/05/25 09:45 Potassium 3.8 mmol/L (3.5-5.1) 07/05/25 09:45 Chloride 94 mmol/L (98-107) L 07/05/25 09:45 Carbon Dioxide 22 mmol/L (22-29) 07/05/25 09:45 Anion Gap 18.8 (5-19) 07/05/25 09:45 BUN 23 mg/dL (6-20) H 07/05/25 09:45 Creatinine 1.1 mg/dL (0.7-1.2) 07/05/25 09:45 GFR Calculation 75.7 mL/min (90-130) L 07/05/25 09:45 Glucose 107 mg/dL (65-115) 07/05/25 09:45 Calculated Osmolality 276 mOsm/kg (285-295) L 07/05/25 09:45 Calcium 10.0 mg/dL (8.5-10.5) 07/05/25 09:45 Total Bilirubin 0.8 mg/dL (0.15-1.2) 07/05/25 09:45 AST 17 U/L (0-40) 07/05/25 09:45 ALT 25 U/L (0-41) 07/05/25 09:45 Alkaline Phosphatase 107 U/L (40-130) 07/05/25 09:45 Total Protein 8.6 g/dL (6.6-8.7) 07/05/25 09:45 Albumin 4.9 g/dL (3.5-5.2) 07/05/25 09:45 Globulin 3.7 g/dL (1.3-4.6) 07/05/25 09:45 Lipase 12 U/L (13-60) L 07/05/25 09:45 All radiology interpretation(s) finalized by discharge Discharge Plan Discharge Patient Disposition: Home Clinical Impression: Abdominal pain Condition: Stable Prescriptions: New hydrocodone-acetaminophen 5-325 mg tablet 1 tab PO Q6H PRN (Reason: pain) Qty: 14 0RF ondansetron 4 mg tablet,disintegrating 4 mg PO Q6H PRN (Reason: nausea and vomiting) Qty: 14 0RF No Action diclofenac sodium 1 % gel 4 g topical QID Qty: 100 1RF Rx Instructions: apply to single knee, ankle, foot; for foot includes sole/toes/top of foot Naprosyn 500 mg tablet 500 mg PO BID PRN (Reason: pain) Qty: 20 0RF sucralfate [Carafate] 1 gram tablet 1 g PO TID 14 Days Qty: 42 0RF pantoprazole [Protonix] 40 mg tablet,delayed release (DR/EC) 40 mg PO DAILY 28 Days Qty: 28 0RF Discharge Orders: Discharge ED (Routine); Ordered 07/05/25 Ordered By: Radha Kohler Referrals: Edward Kilgore MD [Physician, General Surgery] - 4-7 days Discharge Diet: Advance as tolerated Discharge Activity: Resume usual activity Patient Instructions: Abdominal Pain (ED), Opioid Safety Print Language: Rwandan Coding Level of Care Code ED Hospital Education Coordinator for Rolando Blanca
[2025-07-05 09:08] VITALS: RESP 17; O2SAT 98
[2025-07-05] MEDS: ondansetron 2 mg/ML SDV 2 mL 4 MG IVP (09:08)
[2025-07-05] MEDS: morphine 4 mg/mL SDV 1 mL IVP (09:08)
[2025-07-05 09:09] LABS: Hematocrit 53.9 % (37-53); Hemoglobin 19.40 g/dL (11.27-16.99); Mean Corpuscular HGB Conc 36.0 g/dL (30-55); Mean Corpuscular Hemoglobin 29.4 pg (27-33); Mean Corpuscular Volume 81.7 fl (82-101); Nucleated Red Blood Cells % 0 %; Platelet Count 386 10^3/cmm (157-399); Red Blood Count 6.60 10^6/uL (3.85-5.65); White Blood Count 10.91 10^3/uL (3.29-11.43)
[2025-07-05] MEDS: iohexol 350 mg/mL 500 mL Btl (per mL) IV (09:12)
[2025-07-05] MEDS: lidocaine 2% viscous 15 ML, aluminum-mag hydrox-simethicon 30 ML, sucralfate oral liq 1 GM PO (09:21)
[2025-07-05] MEDS: HYDROmorphone 0.5 MG/0.5 ML INJ IVP (10:13)
[2025-07-05 10:26] LABS: Alanine Aminotransferase 25 U/L (0-41); Albumin Level 4.9 g/dL (3.5-5.2); Alkaline Phosphatase 107 U/L (40-130); Anion Gap 18.8 (5-19); Aspartate Amino Transferase 17 U/L (0-40); Blood Urea Nitrogen 23 mg/dL (6-20); Calcium 10.0 mg/dL (8.5-10.5); Carbon Dioxide 22 mmol/L (22-29); Chloride 94 mmol/L (98-107); Creatinine Clr Calc Pharmacy 99.2092; Globulin 3.7 g/dL (1.3-4.6); Glucose 107 mg/dL (65-115); Lipase 12 U/L (13-60); Osmolality Calculated 276 mOsm/kg (285-295); Potassium 3.8 mmol/L (3.5-5.1); Sodium 131 mmol/L (136-145); Total Protein 8.6 g/dL (6.6-8.7)
[2025-07-05 10:57] VITALS: BP 147/100; PULSE 97; O2SAT 92
--- NOTE | 2025-07-06 09:23 | DCPLANNER ---
messaged gen surg for er f/u
--- NOTE | 2025-07-06 11:00 | DCPLANNER ---
Addendum entered by Kari Santiago 07/06/25 11:01: faxed to [facility] [phone] Original Note: patient called and asked referral to go to [facility] instead of [facility]
== END 2025-07-05 10:59 | disposition home or self-care (01) ==
PROVIDERS: Emergency Provider Emergency Medicine
DX: R10.13 Epigastric pain (principal)
CPT/HCPCS: 36415; 74177; 80053; 83690; 85025; 96374; 96375; 99285; J1171; J2270; J2405; J9999

== ENCOUNTER 2025-07-07 07:21 | Emergency (ER) | payer SELFPAY ==
[2025-07-07 07:34] VITALS: BP 148/119; PULSE 98; RESP 20; TEMP 36.4; O2SAT 95
--- NOTE | 2025-07-07 07:44 | ED_ITS ---
HPI - Abdominal Pain 2 General: Chief Complaint: Abdominal Pain Stated Complaint: abd pain Time Seen by Provider: 07/07/25 07:41 History of Present Illness: 35-year-old male presents emergency abdo loyda pain. This been chronic has been to the ER 3 times in the last week. CT of the abdomen at the last visit was negative. He is mildly polycythemic but other labs have been unremarkable. Does use marijuana and he states he has been cutting down some. He has been started on PPIs and Carafate. He states despite this he still has abdominal discomfort. Complains also of left upper quadrant pain no hematemesis coffee- ground emesis no dysuria urgency or frequency. Associated Symptoms: Reports nausea and vomiting; Denies chills, coffee ground emesis, dysuria, fever(s), hematochezia, hematemesis and melena Related Data Previous Rx's ?Medication ?Instructions ?Recorded naproxen 500 mg tablet (Naprosyn) 500 mg PO BID PRN pa in #20 tabs 10/17/23 diclofenac sodium 1 % topical gel 4 g topical QID #100 grams 12/06/23 pantoprazole 40 mg tablet,delayed 40 mg PO DAILY 4 wee ks #28 tabs 07/02/25 release (Protonix) sucralfate 1 gram tablet (Carafate) 1 g PO TID 2 weeks #42 tabs 07/02/25 hydrocodone 5 mg-acetaminophen 325 1 tab PO Q6H PRN pa in #14 tabs 07/05/25 mg tablet ondansetron 4 mg disintegrating 4 mg PO Q6H PRN nausea and 07/05/25 tablet vomiting #14 tabs metoclopramide HCl 10 mg tablet 10 mg PO Q6H PRN nause a and 07/07/25 (Reglan) vomiting #20 tabs Allergies Allergy/AdvReac Type Severity Reaction Status Date / Time No Known Allergies Allergy Verified 07/06/25 18:59 Review of Systems 2 Const: Denies: fever(s) or chills Card: Denies: chest pain Resp: Denies: dyspnea GI: Reports: abdominal pain, nausea and vomiting; Denies: hematemesis, coffee ground emesis, hematochezia or melena : Denies: dysuria, urinary frequency or urinary urgency Musc: Denies: neck pain or back pain Skin/Breast: Denies: rash PFSH ED 2 PFSH: Medical History Work related injury Acromioclavicular joint separation, type 3 Social History (Updated 07/07/25 @ 07:45 by Adam Muñiz DO) Substance/Drug Use: current Substance/Drug use type: Marijuana Physical Exam 2 Const: GENERAL APPEARANCE: cooperative ORIENTATION/CONSCIOUSNESS: Yes awake, Yes oriented to person, Yes oriented to place and Yes oriented to time HENMT: COMMON NORMALS: normocephalic, atraumatic and hearing grossly normal bilaterally HEAD & SCALP: normocephalic and atraumatic Resp: COMMON NORMALS: normal respiratory effort, No retractions, No use of accessory muscles and clear to auscultation bilaterally AUSCULTATION: clear to auscultation bilaterally Cardio: COMMON NORMALS: regular rate, regular rhythm and No murmurs present (Cardio) RATE: regular rate RHYTHM: regular rhythm GI: COMMON NORMALS: Soft to palpation and No hepatosplenomegaly present A USCULTATION: Yes normoactive bowel sounds PALPATION: Yes Soft to palpation, No Tenderness to palpation present (GI), No Guarding due to palpation present (GI) and Yes No hepatosplenomegaly present Extremity: COMMON NORMALS: normal to inspection, capillary refill normal, no clubbing, cyanosis or edema, no calf tenderness and no pedal edema Neuro: SENSORIUM/ORIENTATION: Yes oriented to person, Yes oriented to place and Yes oriented to time Skin: COMMON NORMALS: no rashes or lesions noted GENERAL SKIN EXAM: no rashes or lesions noted Course 2 Vital Signs: Vital signs: Vital Signs Temperature 97.6 F 07/07/25 07:34 Pulse Rate 87 07/07/25 09:18 Respiratory Rate 20 H 07/07/25 07:34 Blood Pressure 136/91 07/07/25 09:18 Pulse Oximetry 94 07/07/25 09:18 Oxygen Delivery Me thod Room Air 07/07/25 07:34 MDM - Abdominal Pain Medical Decision Making Abdominal pain improved with GI cocktail. No acute abdomen on exam. Laboratory test not significantly changed from previous do not think he would benefit from advanced imaging at this time suspect he may have multifocal symptoms with aches, may be THC use, suspect he may have some reflux even some possible peptic ulcers. Will have him increase his use of Carafate to 1 every 6 hours as needed. Increase pantoprazole to 1 p.o. twice daily x 10 days then 1 p[address] daily. Finally in place of ondansetron use Reglan 1 every 6 hours as needed. Keep follow-up appoint with Dr. Lara as scheduled. If symptoms are persisting he may benefit from endoscopy. Recommend abstinence from THC products Medical Records I reviewed the patient's medical records. Lab Data I reviewed the patient's lab results. 07/07/25 07:59 07/07/25 07:59 Labs/Radiology: Laboratory Results WBC 11.82 10^3/uL (3.29-11.43) H 07/07/25 07:59 RBC 6.52 10^6/uL (3.85-5.65) H 07/07/25 07:59 Hgb 18.90 g/dL (11.27-16.99) H 07/07/25 07:59 Hct 53.3 % (37-53) H 07/07/25 07:59 MCV 81.7 fl (82-101) L 07/07/25 07:59 MCH 29.0 pg (27-33) 07/07/25 07:59 MCHC 35.5 g/dL (30-55) 07/07/25 07:59 RDW 12.1 % (12.1-15.1) 07/07/25 07:59 Plt Count 401 10^3/cmm (157-399) H 07/07/25 07:59 MPV 9.4 fL (7.4-10.4) 07/07/25 07:59 Neut % (Auto) 73.7 % 07/07/25 07:59 Lymph % (Auto) 16.3 % 07/07/25 07:59 [place] % (Auto) 8.8 % 07/07/25 07:59 Eos % (Auto) 0.5 % 07/07/25 07:59 Baso % (Auto) 0.4 % 07/07/25 07:59 Neut # (Auto) 8.70 10^3/uL (1.8-7.7) H 07/07/25 07:59 Lymph # (Auto) 1.9 10^3/uL (0.8-4.8) 07/07/25 07:59 [place] # (Auto) 1.0 10^3/uL (0.2-0.9) H 07/07/25 07:59 Eos # (Auto) 0.1 10^3/uL (0.0-0.8) 07/07/25 07:59 Baso # (Auto) 0.1 10^3/uL (0.0-0.1) 07/07/25 07:59 Nucleated RBC % (auto) 0 % 07/07/25 07:59 Nucleated RBCs # 0.0 /100WBC 07/07/25 07:59 Sodium 133 mmol/L (136-145) L 07/07/25 07:59 Potassium 3.4 mmol/L (3.5-5.1) L 07/07/25 07:59 Chloride 93 mmol/L (98-107) L 07/07/25 07:59 Carbon Dioxide 22 mmol/L (22-29) 07/07/25 07:59 Anion Gap 21.4 (5-19) H 07/07/25 07:59 BUN 21 mg/dL (6-20) H 07/07/25 07:59 Creatinine 1.0 mg/dL (0.7-1.2) 07/07/25 07:59 GFR Calculation 84.5 mL/min (90-130) L 07/07/25 07:59 Glucose 119 mg/dL (65-115) H 07/07/25 07:59 Calculated Osmolality 280 mOsm/kg (285-295) L 07/07/25 07:59 Calcium 9.8 mg/dL (8.5-10.5) 07/07/25 07:59 Total Bilirubin 0.8 mg/dL (0.15-1.2) 07/07/25 07:59 AST 17 U/L (0-40) 07/07/25 07:59 ALT 26 U/L (0-41) 07/07/25 07:59 Alkaline Phosphatase 106 U/L (40-130) 07/07/25 07:59 Total Protein 8.3 g/dL (6.6-8.7) 07/07/25 07:59 Albumin 4.9 g/dL (3.5-5.2) 07/07/25 07:59 Globulin 3.4 g/dL (1.3-4.6) 07/07/25 07:59 Lipase 14 U/L (13-60) 07/07/25 07:59 Urine Color Yellow (Yellow) 07/07/25 08:35 Urine Appearance Cloudy (CLEAR) A 07/07/25 08:35 Urine pH 6.0 (5-7) 07/07/25 08:35 Ur Specific [place] 1.033 (1.005-1.030) H 07/07/25 08:35 Urine Protein 1+ (Negative) A 07/07/25 08:35 Urine Glucose (UA) Negative (Normal) 07/07/25 08:35 Urine Ketones Trace (Negative) 07/07/25 08:35 Urine Blood Negative (Negative) 07/07/25 08:35 Urine Nitrate Negative (Negative) 07/07/25 08:35 Urine Bilirubin Negative (Negative) 07/07/25 08:35 Urine Urobilinogen 1.0 mg/dL (Negative) 07/07/25 08:35 Ur Leukocyte Esterase Negative (Negative) 07/07/25 08:35 Urine RBC 0-2 /hpf (0-2) 07/07/25 08:35 Urine WBC 0-5 /hpf (0-5) 07/07/25 08:35 Ur Squamous Epith Cells 0-5 /hpf (0-5) 07/07/25 08:35 Amorphous Sediment Not Reportable 07/07/25 08:35 Urine Bacteria None seen /hpf (NONE) 07/07/25 08:35 Hyaline Casts 10.73 /lpf 07/07/25 08:35 Coarse Granular Casts 0-4 /lpf H 07/07/25 08:35 Urine Mucus 1+ /hpf 07/07/25 08:35 No radiology studies performed this visit Discharge Plan Discharge Patient Disposition: Home Clinical Impression: Abdominal pain Qualifiers: Abdominal location: epigastric Qualified Code(s): R10.13 - Epigastric pain Prescriptions: New metoclopramide HCl [Reglan] 10 mg tablet 10 mg PO Q6H PRN (Reason: nausea and vomiting) Qty: 20 0RF No Action diclofenac sodium 1 % gel 4 g topical QID Qty: 100 1RF Rx Instructions: apply to single knee, ankle, foot; for foot includes sole/toes/top of foot hydrocodone-acetaminophen 5-325 mg tablet 1 tab PO Q6H PRN (Reason: pain) Qty: 14 0RF ondansetron 4 mg tablet,disintegrating 4 mg PO Q6H PRN (Reason: nausea and vomiting) Qty: 14 0RF naproxen [Naprosyn] 500 mg tablet 500 mg PO BID PRN (Reason: pain) Qty: 20 0RF sucralfate [Carafate] 1 gram tablet 1 g PO TID 14 Days Qty: 42 0RF pantoprazole [Protonix] 40 mg tablet,delayed release (DR/EC) 40 mg PO DAILY 28 Days Qty: 28 0RF Discharge Orders: Discharge ED (Routine); Ordered 07/07/25 Ordered By: Adam Muñiz Discharge Diet: As Directed Patient Instructions: Diet for Stomach Ulcers and Gastritis (ED), GERD (Gastroesophageal Reflux Disease) (ED), Abdominal Pain (ED), Opioid Safety, Pain Management, Patient Portal & Alejandro Instructions Activity Restrictions/Additional Instructions: Thank you for choosing [facility] for your healthcare needs today. It is very important that you follow up as instructed or that you return to the Emergency Department should you have concerns or if your condition changes or worsens in any way. Emergency department visits are focused on emergent conditions, in some cases you may require further evaluation on an outpatient basis. You were seen in the emergency room with complaints of abdominal discomfort nausea. Recommend that you stop all use of THC products as this can contribute to. Additionally you can increase your use of the Carafate to 1 every 6 hours.. Increase your pantoprazole to 1 pill twice a day for 10 days then resume 1 pill daily. Avoid Naprosyn ibuprofen Motrin aspirin or any other NSAIDs, as these things will likely worsen your symptoms. In place of ondansetron you can try Reglan 1 tablet every 6 hours as needed. (Please note that included in your discharge packet is information concerning opioid safety and pain management. This information is given to all patients were discharged from the ER regardless of their discharge diagnosis or the medicines they usually take or are prescribed.) Print Language: Korean Coding Level of Care Code ED Seasonal Driver for Rolando Blanca
[2025-07-07 08:07] LABS: Hematocrit 53.3 % (37-53); Hemoglobin 18.90 g/dL (11.27-16.99); Mean Corpuscular HGB Conc 35.5 g/dL (30-55); Mean Corpuscular Hemoglobin 29.0 pg (27-33); Mean Corpuscular Volume 81.7 fl (82-101); Nucleated Red Blood Cells % 0 %; Platelet Count 401 10^3/cmm (157-399); Red Blood Count 6.52 10^6/uL (3.85-5.65); White Blood Count 11.82 10^3/uL (3.29-11.43)
[2025-07-07 08:24] LABS: Alanine Aminotransferase 26 U/L (0-41); Albumin Level 4.9 g/dL (3.5-5.2); Alkaline Phosphatase 106 U/L (40-130); Anion Gap 21.4 (5-19); Aspartate Amino Transferase 17 U/L (0-40); Blood Urea Nitrogen 21 mg/dL (6-20); Calcium 9.8 mg/dL (8.5-10.5); Carbon Dioxide 22 mmol/L (22-29); Chloride 93 mmol/L (98-107); Creatinine Clr Calc Pharmacy 110.4405; Globulin 3.4 g/dL (1.3-4.6); Glucose 119 mg/dL (65-115); Lipase 14 U/L (13-60); Osmolality Calculated 280 mOsm/kg (285-295); Potassium 3.4 mmol/L (3.5-5.1); Sodium 133 mmol/L (136-145); Total Protein 8.3 g/dL (6.6-8.7)
[2025-07-07] MEDS: lidocaine 2% viscous 15 ML, aluminum-mag hydrox-simethicon 30 ML, sucralfate oral liq 1 GM PO (08:36)
[2025-07-07 08:44] LABS: Glucose Urine UA Negative (Normal); Nitrate Urine Negative (Negative)
[2025-07-07 08:49] LABS: Add Urine Microscopic? YES
[2025-07-07 09:17] LABS: Specific Gravity, Urine 1.033 (1.005-1.030)
[2025-07-07 09:18] VITALS: BP 136/91; PULSE 87; O2SAT 94
[2025-07-07 09:18] LABS: UA Slide Review UA Slide Review Perf
== END 2025-07-07 09:21 | disposition home or self-care (01) ==
PROVIDERS: Emergency Provider Family Medicine
DX: R10.13 Epigastric pain (principal)
CPT/HCPCS: 80053; 81001; 83690; 85025; 86677; 96374; 99284; J0780; J7030; J9999

== ENCOUNTER 2025-07-09 08:28 | Emergency (ER) | payer SELFPAY ==
[2025-07-09 08:37] VITALS: BP 161/94; PULSE 64; RESP 18; TEMP 37.1; O2SAT 97; BMI 25.8
[2025-07-09 08:42] VITALS: PULSE 65; RESP 18; O2SAT 98
[2025-07-09 09:08] LABS: Hematocrit 46.9 % (37-53); Hemoglobin 16.70 g/dL (11.27-16.99); Mean Corpuscular HGB Conc 35.6 g/dL (30-55); Mean Corpuscular Hemoglobin 29.1 pg (27-33); Mean Corpuscular Volume 81.7 fl (82-101); Nucleated Red Blood Cells % 0 %; Platelet Count 351 10^3/cmm (157-399); Red Blood Count 5.74 10^6/uL (3.85-5.65); White Blood Count 7.77 10^3/uL (3.29-11.43)
--- NOTE | 2025-07-09 09:21 | ED_ITS ---
HPI - Abdominal Pain 2 General: Chief Complaint: Abdominal Pain Stated Complaint: Med Refill and talk to doctor ABD Pain Time Seen by Provider: 07/09/25 08:29 History of Present Illness: 35-year-old male presents emergency room with complaints of abdominal pain nausea and vomiting. She has been hide he has been having this for the last several days he has had multiple visits to the emergency room labs and CT have been unremarkable he has been started on PPIs and Carafate. He was given hydrocodone at a previous visit he noticed that improved things he. He is he is also mentioned that it is much better when he does not use marijuana products. He denies any hematemesis coffee-ground emesis. He told the nurse he thought he had pancreatitis however reviewing the chart he was never diagnosed with pancreatitis his lipase is always been normal and his CT did not show any signs of pancreas inflammation. Associated Symptoms: Reports nausea; Denies chills, dysuria, fever(s), hematochezia, hematemesis, melena and vomiting Related Data Previous Rx's ?Medication ?Instructions ?Recorded pantoprazole 40 mg tablet,delayed 40 mg PO DAILY 4 wee ks #28 tabs 07/02/25 release (Protonix) sucralfate 1 gram tablet (Carafate) 1 g PO TID 2 weeks #42 tabs 07/02/25 hydrocodone 5 mg-acetaminophen 325 1 tab PO Q6H PRN pa in #14 tabs 07/05/25 mg tablet ondansetron 4 mg disintegrating 4 mg PO Q6H PRN nausea and 07/05/25 tablet vomiting #14 tabs metoclopramide HCl 10 mg tablet 10 mg PO Q6H PRN nause a and 07/07/25 (Reglan) vomiting #20 tabs lorazepam 2 mg tablet (Ativan) 2 mg buccal Q8H PRN renetta sea and 07/09/25 vomiting #14 tabs olanzapine 10 mg disintegrating 10 mg PO .Every 8 hour s PRN nausea 07/09/25 tablet and vomiting #14 tabs Allergies Allergy/AdvReac Type Severity Reaction Status Date / Time No Known Allergies Allergy Verified 07/06/25 18:59 Review of Systems 2 Const: Denies: fever(s) or chills Card: Denies: chest pain Resp: Denies: dyspnea GI: Reports: abdominal pain and nausea; Denies: vomiting, hematemesis, hematochezia or melena : Denies: dysuria, urinary frequency or urinary urgency Musc: Denies: neck pain or back pain Skin/Breast: Denies: rash PFSH ED 2 PFSH: Medical History Work related injury Acromioclavicular joint separation, type 3 Social History Substance/Drug Use: current Physical Exam 2 Const: COMMON NORMALS: no acute distress GENERAL APPEARANCE: cooperative and comfortable ORIENTATION/CONSCIOUSNESS: Yes awake, Yes oriented to person, Yes oriented to place and Yes oriented to time HENMT: COMMON NORMALS: normocephalic, atraumatic and hearing grossly normal bilaterally HEAD & SCALP: normocephalic and atraumatic Resp: COMMON NORMALS: normal respiratory effort, No retractions, No use of accessory muscles and clear to auscultation bilaterally AUSCULTATION: clear to auscultation bilaterally Cardio: COMMON NORMALS: regular rate, regular rhythm and No murmurs present (Cardio) RATE: regular rate RHYTHM: regular rhythm GI: COMMON NORMALS: Soft to palpation and No hepatosplenomegaly present A USCULTATION: Yes normoactive bowel sounds PALPATION: Yes Soft to palpation, No Tenderness to palpation present (GI), No Guarding due to palpation present (GI) and Yes No hepatosplenomegaly present Extremity: COMMON NORMALS: normal to inspection, capillary refill normal, no clubbing, cyanosis or edema, no calf tenderness and no pedal edema Neuro: SENSORIUM/ORIENTATION: Yes oriented to person, Yes oriented to place and Yes oriented to time Skin: COMMON NORMALS: no rashes or lesions noted GENERAL SKIN EXAM: no rashes or lesions noted Course 2 Vital Signs: Vital signs: Vital Signs Temperature 98.8 F 07/09/25 08:37 Pulse Rate 65 07/09/25 08:42 Respiratory Rate 18 07/09/25 08:42 Blood Pressure 161/94 07/09/25 08:37 Pulse Oximetry 98 07/09/25 08:42 Oxygen Delivery Me thod Room Air 07/09/25 08:42 MDM - Abdominal Pain Medical Decision Making Patient reports that when he cut back on his marijuana use he has significant improvement. Suspect the large portion of his symptoms are due to that he had mentioned to the nurses that he had pancreatitis however there was no such diagnosis made to his previous visit his lipase were normal and his CT was negative. Will discharge the patient home Medical Records I reviewed the patient's medical records. Lab Data I reviewed the patient's lab results. 07/09/25 08:52 07/09/25 08:52 Labs/Radiology: Laboratory Results WBC 7.77 10^3/uL (3.29-11.43) 07/09/25 08:52 RBC 5.74 10^6/uL (3.85-5.65) H 07/09/25 08:52 Hgb 16.70 g/dL (11.27-16.99) 07/09/25 08:52 Hct 46.9 % (37-53) 07/09/25 08:52 MCV 81.7 fl (82-101) L 07/09/25 08:52 MCH 29.1 pg (27-33) 07/09/25 08:52 MCHC 35.6 g/dL (30-55) 07/09/25 08:52 RDW 12.1 % (12.1-15.1) 07/09/25 08:52 Plt Count 351 10^3/cmm (157-399) 07/09/25 08:52 MPV 9.6 fL (7.4-10.4) 07/09/25 08:52 Neut % (Auto) 57.2 % 07/09/25 08:52 Lymph % (Auto) 28.4 % 07/09/25 08:52 [place] % (Auto) 10.8 % 07/09/25 08:52 Eos % (Auto) 2.4 % 07/09/25 08:52 Baso % (Auto) 0.9 % 07/09/25 08:52 Neut # (Auto) 4.44 10^3/uL (1.8-7.7) 07/09/25 08:52 Lymph # (Auto) 2.2 10^3/uL (0.8-4.8) 07/09/25 08:52 [place] # (Auto) 0.8 10^3/uL (0.2-0.9) 07/09/25 08:52 Eos # (Auto) 0.2 10^3/uL (0.0-0.8) 07/09/25 08:52 Baso # (Auto) 0.1 10^3/uL (0.0-0.1) 07/09/25 08:52 Nucleated RBC % (auto) 0 % 07/09/25 08:52 Nucleated RBCs # 0.0 /100WBC 07/09/25 08:52 Sodium 137 mmol/L (136-145) 07/09/25 08:52 Potassium 3.3 mmol/L (3.5-5.1) L 07/09/25 08:52 Chloride 101 mmol/L (98-107) 07/09/25 08:52 Carbon Dioxide 23 mmol/L (22-29) 07/09/25 08:52 Anion Gap 16.3 (5-19) 07/09/25 08:52 BUN 14 mg/dL (6-20) 07/09/25 08:52 Creatinine 0.9 mg/dL (0.7-1.2) 07/09/25 08:52 GFR Calculation 95.5 mL/min (90-130) 07/09/25 08:52 Glucose 114 mg/dL (65-115) 07/09/25 08:52 Calculated Osmolality 285 mOsm/kg (285-295) 07/09/25 08:52 Calcium 9.0 mg/dL (8.5-10.5) 07/09/25 08:52 Total Bilirubin 0.6 mg/dL (0.15-1.2) 07/09/25 08:52 AST 16 U/L (0-40) 07/09/25 08:52 ALT 22 U/L (0-41) 07/09/25 08:52 Alkaline Phosphatase 86 U/L (40-130) 07/09/25 08:52 Total Protein 7.3 g/dL (6.6-8.7) 07/09/25 08:52 Albumin 4.4 g/dL (3.5-5.2) 07/09/25 08:52 Globulin 2.9 g/dL (1.3-4.6) 07/09/25 08:52 All radiology interpretation(s) finalized by discharge Discharge Plan Discharge Patient Disposition: Home Clinical Impression: Cannabinoid hyperemesis syndrome Condition: Stable Prescriptions: New olanzapine 10 mg tablet,disintegrating 10 mg PO .Every 8 hours PRN (Reason: nausea and vomiting) Qty: 14 0RF lorazepam [Ativan] 2 mg tablet 2 mg buccal Q8H PRN (Reason: nausea and vomiting) Qty: 14 0RF No Action hydrocodone-acetaminophen 5-325 mg tablet 1 tab PO Q6H PRN (Reason: pain) Qty: 14 0RF ondansetron 4 mg tablet,disintegrating 4 mg PO Q6H PRN (Reason: nausea and vomiting) Qty: 14 0RF metoclopramide HCl [Reglan] 10 mg tablet 10 mg PO Q6H PRN (Reason: nausea and vomiting) Qty: 20 0RF sucralfate [Carafate] 1 gram tablet 1 g PO TID 14 Days Qty: 42 0RF pantoprazole [Protonix] 40 mg tablet,delayed release (DR/EC) 40 mg PO DAILY 28 Days Qty: 28 0RF Discharge Orders: Discharge ED (Routine); Ordered 07/09/25 Ordered By: Adam Muñiz Discharge Diet: As Directed Discharge Activity: Increase activity as tolerated Patient Instructions: Diet for Stomach Ulcers and Gastritis (ED), Opioid Safety, Pain Management, Patient Portal & Alejandro Instructions Activity Restrictions/Additional Instructions: Thank you for choosing [facility] for your healthcare needs today. It is very important that you follow up as instructed or that you return to the Emergency Department should you have concerns or if your condition changes or worsens in any way. Emergency department visits are focused on emergent conditions, in some cases you may require further evaluation on an outpatient basis. You were seen in the emergency room for persistent abdominal pain and nausea and vomiting. You reported that with decreasing THC products your pain was decreasing. This is likely a direct cause of your symptoms. Recommend using olanzapine and Ativan as needed as prescribed above if you have recurrent symptoms. Abstain from marijuana products. (Please note that included in your discharge packet is information concerning opioid safety and pain management. This information is given to all patients were discharged from the ER regardless of their discharge diagnosis or the medicines they usually take or are prescribed.) Print Language: Senegalese Coding Level of Care Code ED Crate Builder for Rolando Blanca
[2025-07-09 09:29] LABS: Alanine Aminotransferase 22 U/L (0-41); Albumin Level 4.4 g/dL (3.5-5.2); Alkaline Phosphatase 86 U/L (40-130); Anion Gap 16.3 (5-19); Aspartate Amino Transferase 16 U/L (0-40); Blood Urea Nitrogen 14 mg/dL (6-20); Calcium 9.0 mg/dL (8.5-10.5); Carbon Dioxide 23 mmol/L (22-29); Chloride 101 mmol/L (98-107); Creatinine Clr Calc Pharmacy 122.7117; Globulin 2.9 g/dL (1.3-4.6); Glucose 114 mg/dL (65-115); Osmolality Calculated 285 mOsm/kg (285-295); Potassium 3.3 mmol/L (3.5-5.1); Sodium 137 mmol/L (136-145); Total Protein 7.3 g/dL (6.6-8.7)
== END 2025-07-09 09:39 | disposition home or self-care (01) ==
PROVIDERS: Emergency Provider Family Medicine
DX: R11.2 Nausea with vomiting, unspecified (principal); F12.90 Cannabis use, unspecified, uncomplicated
CPT/HCPCS: 36415; 80053; 85025; 99283